=== PATIENT | female | born 1970 | race Caucasian/White ===

== ENCOUNTER → 2016-12-15 | Outpatient (CLI) | payer BC | LOC: MC.RAD 14:40 | DX: Z12.31 Encounter for screening mammogram for malignant neoplasm of breast (principal) ==

== ENCOUNTER → 2016-12-22 | Outpatient (CLI) | payer BC | LOC: MC.RAD 08:30 | DX: N60.19 Diffuse cystic mastopathy of unspecified breast (principal); N63 Unspecified lump in breast ==

== ENCOUNTER → 2016-12-28 | Outpatient (CLI) | payer BC | LOC: MC.RAD 08:00 | DX: N63 Unspecified lump in breast (principal); N60.81 Other benign mammary dysplasias of right breast ==

== ENCOUNTER → 2018-03-21 | Outpatient (CLI) | payer BC | LOC: MC.RAD 11:27 | DX: Z12.31 Encounter for screening mammogram for malignant neoplasm of breast (principal) ==